=== PATIENT | male | born 1955 | race Caucasian/White ===

== ENCOUNTER 2021-10-06 21:04 | Emergency (ER) | payer MEDICARE ==
[~2021-10-06 21:04] MED LIST: THIAMINE 100 MG TAB PO SCH
[2021-10-06] MEDS ORDERED: SODIUM CHLORIDE 0.9% 1,000 ML IV STA (21:26)
[2021-10-06] MEDS ORDERED: MORPHINE SULFATE 4 MG/ML SYRINGE IVP STA (21:27)
[2021-10-06 21:42] LABS: Glucose,Whole Blood 227 mg/dL (75-99)
[2021-10-06 21:53] LABS: Basophils # (A) 0.2 k/uL (0-0.2); Basophils % (A) 2 %; Eosinophils # (A) 0.2 k/uL (0-0.7); Eosinophils % (A) 2 %; HCT 39.1 % (39.0-53.0); HGB 13.3 gm/dL (13.0-17.5); Lymphocytes # (A) 2.1 k/uL (1.0-4.8); Lymphocytes % (A) 16 %; MCH 34.2 pg (25.0-35.0); MCHC 34.1 g/dL (31.0-37.0); MCV 100.5 fL (80.0-100.0); Macrocytosis Slight; Mean Platelet Volume 7.6; Monocytes # (A) 1.2 k/uL (0-1.0); Monocytes % (A) 9 %; Neutrophils # (A) 8.9 k/uL (1.3-7.7); Neutrophils % (A) 69 %; Platelet Count 105 k/uL (150-450); RDW 14.5 % (11.5-15.5); WBC 12.8 k/uL (3.8-10.6)
[2021-10-06 22:03] LABS: ALT 54 U/L (4-49); AST 109 U/L (17-59); African American GFR (CKD) >90 (>60 ml/min/1.73 sqM); Albumin 3.8 g/dL (3.5-5.0); Alkaline Phosphatase 94 U/L (38-126); Anion Gap 10 mmol/L; Blood Urea Nitrogen 10 mg/dL (9-20); Calcium 8.3 mg/dL (8.4-10.2); Carbon Dioxide 26 mmol/L (22-30); Chloride 97 mmol/L (98-107); Glucose 204 mg/dL (74-99); Non-African American GFR(CKD) >90 (>60 ml/min/1.73 sqM); Potassium 4.2 mmol/L (3.5-5.1); Sodium 133 mmol/L (137-145); Total Bilirubin 2.5 mg/dL (0.2-1.3)
[2021-10-06 22:08] LABS: Alcohol 259 mg/dL
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
[2021-10-06 22:25] LABS: INR 1.4 (<1.2); Partial Thromboplastin Time 26.9 sec (22.0-30.0); Prothrombin Time 14.2 sec (9.0-12.0)
[2021-10-06] MEDS ORDERED: HYDROmorphone 0.5 MG/0.5 ML SYRINGE IVP STA (22:30)
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
[2021-10-06] MEDS ORDERED: HYDROmorphone 1 MG/ML 1 ML SYRINGE IVP STA (22:48)
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
--- NOTE | 2021-10-06 23:08 | XR ---
EXAMINATION TYPE: XR wrist limited RT DATE OF EXAM: 10/06/2021 COMPARISON: NONE HISTORY: Pain TECHNIQUE: 3 views FINDINGS: There are midshaft fractures of the radius and ulna with 100% offset and overriding of the fragments. There is no dislocation. The carpal bones are intact. There is spurring at the first carpo metacarpal joint. There is a nondisplaced midshaft fracture of the fifth metacarpal. IMPRESSION: Displaced midshaft fractures of the radius and ulna. Nondisplaced fracture mid shaft of t he fifth metacarpal.
--- NOTE | 2021-10-06 23:14 | XR ---
EXAMINATION TYPE: XR elbow limited RT DATE OF EXAM: 10/06/2021 COMPARISON: NONE HISTORY: Elbow pain TECHNIQUE: 2 views FINDINGS: Radial head is intact. I see no fracture nor dislocation of the elbow joint. There is no si gn of elbow joint effusion. There is spurring on the olecranon process of the ulna. There are midshaf t fractures of the radius and ulna partly visualized. IMPRESSION: Radius and ulna midshaft fractures. No fracture seen at the elbow joint. Olecranon proces s spur formation
--- NOTE | 2021-10-06 23:15 | XR ---
EXAMINATION TYPE: XR shoulder complete RT DATE OF EXAM: 10/06/2021 COMPARISON: NONE HISTORY: Shoulder pain TECHNIQUE: 4 view FINDINGS: There is narrowing and spurring at the glenohumeral joint. AC joint is intact. I see no fra cture nor dislocation. There are no erosions. IMPRESSION: Moderate osteoarthritis of the shoulder joint. No shoulder joint fracture. There is noted multiple lateral right rib fractures.
--- NOTE | 2021-10-06 23:17 | XR ---
EXAMINATION TYPE: XR ankle limited RT DATE OF EXAM: 10/06/2021 COMPARISON: NONE HISTORY: Ankle pain TECHNIQUE: 2 views FINDINGS: There is oblique nondisplaced fracture of the distal shaft of the fibula. Ankle mortise is anatomic. There is plantar calcaneal spurring. There is some narrowing of the ankle joint space. Ther e is soft tissue swelling around the ankle. IMPRESSION: Acute nondisplaced oblique fracture distal shaft of the fibula.
[2021-10-06 23:39] VITALS: RESP 20
[2021-10-06] MEDS ORDERED: NALOXONE 0.4 MG/ML 1 ML VIAL IV PRN ×2 (23:41)
[2021-10-06] MEDS ORDERED: LORazepam 2 MG/ML INJ IV PRN ×5 (23:43→23:47)
[2021-10-06] MEDS ORDERED: HYDROmorphone 0.5 MG/0.5 ML SYRINGE IVP PRN (23:43)
[2021-10-06] MEDS ORDERED: ONDANSETRON 4 MG/2 ML VIAL IVP PRN (23:43)
[2021-10-06] MEDS ORDERED: DEXTROSE 5%-0.45% NACL 1,000 ML IV SCH (23:45)
[2021-10-06] MEDS ORDERED: THIAMINE 100 MG/ML 2 ML VIAL IM STA (23:47)
--- NOTE | 2021-10-07 00:05 | XR ---
EXAMINATION TYPE: XR forearm RT DATE OF EXAM: 10/06/2021 COMPARISON: Today HISTORY: Post reduction TECHNIQUE: 2 views FINDINGS: 2 views were obtained through the cast. There are midshaft fractures of the radius and ulna. There is 100% anterior displacement of the distal radius fragment. There is some overriding of the fragments. There is 100% offset of the ulnar fracture with some medial displacement. IMPRESSION: Displaced fractures of the radius and ulna with overriding of the radius fragments. Cierra l alignment.
--- NOTE | 2021-10-07 00:07 | XR ---
EXAMINATION TYPE: XR ankle limited RT DATE OF EXAM: 10/06/2021 COMPARISON: Today HISTORY: Post reduction TECHNIQUE: 2 views FINDINGS: There is oblique fracture without displacement of the distal shaft of the fibula. Ankle mor tise is in anatomic position. There is some narrowing of the posterior ankle joint space. There is pl anamika calcaneal spurring. IMPRESSION: Fracture distal fibula with no change in position compared to initial exam. No significan t displacement.
[2021-10-07 00:56] VITALS: TEMP 97.8
[2021-10-07 01:29] VITALS: BP 183/98; PULSE 110
[2021-10-07] MEDS ORDERED: MULTIVITAMINS, THERA 1 EACH TAB PO SCH (09:00)
== END 2021-10-07 01:27 | disposition other institution (70) ==
LOC: EC 21:04 → UNDOADMOB 23:41 → 6NMEDSUR 23:41 → EC 10-07 01:27
DX: S82.401A Unspecified fracture of shaft of right fibula, initial encounter for closed fracture (principal); S52.201A Unspecified fracture of shaft of right ulna, initial encounter for closed fracture; S22.41XA Multiple fractures of ribs, right side, initial encounter for closed fracture; F10.129 Alcohol abuse with intoxication, unspecified; I10 Essential (primary) hypertension; V89.2XXA Person injured in unspecified motor-vehicle accident, traffic, initial encounter
CPT/HCPCS: 99291; 96374; 96361; 25565; 36415; 93005; 86900; 86901; 80053; 83690; 84484; 85025; 85610; 85730; 86850; 73030; 73070; 73090; 73100; 73600; 72125; 70486; 70450; 71260; 74177; 96375; G0480; J2270; J1170; Q9967; 80320